=== PATIENT | female | born 1975 ===

== ENCOUNTER 2018-09-01 06:22 | Day surgery (SDC) | payer OTHER ==
[2018-09-01] MEDS ORDERED: NAPROXEN500 MG PO (09:18)
[2018-09-01] MEDS ORDERED: NORFLEX PO (09:18)
== END 2018-09-01 17:45 | disposition home or self-care (01) ==
LOC: CIR.AMB 06:22
DX: K43.6 Other and unspecified ventral hernia with obstruction, without gangrene (principal)